=== PATIENT | female | born 1960 | race Caucasian/White ===

== ENCOUNTER 2022-08-01 07:46 | Day surgery (SDC) | payer MEDICAID ==
[2022-08-01] MEDS ORDERED: TEGRETOL PO (09:45)
[2022-08-01] MEDS ORDERED: LEVOTHYROXIN150 MCG PO (09:46)
[2022-08-01] MEDS ORDERED: LIOTHYRONINE SODIUM PO (09:47)
[2022-08-01] MEDS ORDERED: OXYCODONE10 M1 PO (09:49)
[2022-08-01] MEDS ORDERED: BACLOFEN10 MG PO ×2 (09:50→09:51)
[2022-08-01] MEDS ORDERED: XANAX0.5 MG PO (09:52)
[2022-08-01] MEDS ORDERED: ATORVASTATIN CA80 MG PO (09:53)
[2022-08-01] MEDS ORDERED: [UNRECOGNIZED DRUG - OTHER] PO (09:55)
[2022-08-01] MEDS ORDERED: LYRICA50 MG PO (09:57)
[2022-08-01] MEDS ORDERED: DULOXETINE HCL20 MG PO (09:59)
[2022-08-01 11:29] VITALS: BP 114/66
== END 2022-08-01 11:45 | disposition home or self-care (01) ==
LOC: ORM 07:46
PROVIDERS: ATTEND Physical Medicine & Rehabilitation
DX: G89.4 Chronic pain syndrome (principal); G50.0 Trigeminal neuralgia; M47.816 Spondylosis without myelopathy or radiculopathy, lumbar region; G35 Multiple sclerosis; Z79.899 Other long term (current) drug therapy

== ENCOUNTER 2022-08-15 07:38 | Day surgery (SDC) | payer MEDICAID ==
[~2022-08-15] VITALS: Ht 170.2 cm; Wt 76.7 kg
[~2022-08-15 07:38] MED LIST: ATORVASTATIN CA80 MG PO; BACLOFEN10 MG PO; DULOXETINE HCL20 MG PO; LEVOTHYROXIN150 MCG PO; LIOTHYRONINE SODIUM PO; LYRICA50 MG PO; OXYCODONE10 M1 PO; TEGRETOL PO; XANAX0.5 MG PO; [UNRECOGNIZED DRUG - OTHER] PO
[2022-08-15] MEDS ORDERED: MYRBETRIQ25 MG PO (08:30)
[2022-08-15 10:37] VITALS: BP 116/73
== END 2022-08-15 10:27 | disposition home or self-care (01) ==
LOC: ORM 07:38
PROVIDERS: ATTEND Physical Medicine & Rehabilitation
DX: G89.4 Chronic pain syndrome (principal); G50.0 Trigeminal neuralgia; M47.816 Spondylosis without myelopathy or radiculopathy, lumbar region; G35 Multiple sclerosis; Z79.899 Other long term (current) drug therapy